=== PATIENT | female | born 1995 | race Caucasian/White ===

== ENCOUNTER 2016-05-06 17:09 | Emergency (ER) | payer OTHER ==
[2016-05-06 17:44] VITALS: BP 140/87
--- NOTE | 2016-05-06 19:15 | UC ---
Complaint Female HPI - HPI Summary HPI Summary: pt states then when she woke up on tuesday, she had urgency. pt states it west when she voids and he urine smells bad. pt tried to treat herself at home with azo and cranberry juice. [ End ] - History Of Current Complaint Chief Complaint: UCGU Stated Complaint: BURNING URINATION Time Seen by Provider: 05/06/16 17:56 Hx Obtained From: Patient Hx Last Menstrual Period: 04/23/16 ?: No Onset/Duration: Lasting Days - 4, Still Present Timing: Constant Severity Initially: Mild Severity Currently: Mild Pain Intensity: 4 Pain Scale Used: 0-10 Numeric Character: Burning Aggravating Factor(s): Urination Alleviating Factor(s): Nothing Associated Signs And Symptoms: Negative: Fever, Back Pain, Vaginal Bleeding/ Discharge, Vaginal Discharge, Nausea, Vomiting(# Of Episodes =), Genital Swelling, Genital Blisters - Allergies/Home Medications Allergies/Adverse Reactions: Allergies Allergy/AdvReac Type Severity Reaction Status Date / Time Acetaminophen [From Vicodin] Allergy Severe Vomiting Verified 12/17/15 13:04 Hydrocodone [From Vicodin] Allergy Severe Vomiting Verified 12/17/15 13:04 Bismuth Subsalicylate Allergy See Comment Verified 12/17/15 13:04 [From Pepto-Bismol] Home Medications: Home Medications Cranberry-Vitamin C-Probiotic [Azo Cranberry 250-30 mg] 450 mg PO 05/06/16 [ History] PMH/Surg Hx/FS Hx/Imm Hx Previously Healthy: No Respiratory History Of: Reports: Asthma - As child - Surgical History Surgical History: Yes Surgery Procedure, Year, and Place: [place] teeth - Family History Known Family History: Positive: Hypertension - Social History Occupation: Employed Part-time, Student Lives: With Family Alcohol Use: Occasionally Substance Use Type: None Smoking Status (MU): Never Smoked Tobacco - Immunization History Most Recent Influenza Vaccination: Unknown Review of Systems Constitutional: Negative Skin: Negative Eyes: Negative ENT: Negative Respiratory: Negative Cardiovascular: Negative Gastrointestinal: Negative Genitourinary: Dysuria, Frequency, Urgency Motor: Negative Neurovascular: Negative Musculoskeletal: Negative Neurological: Negative Psychological: Negative All Other Systems Reviewed And Are Negative: Yes Physical Exam Triage Information Reviewed: Yes Appearance: Well-Appearing, No Pain Distress, Well-Nourished Vital Signs: Initial Vital Signs Temp 98.6 F 05/06/16 17:40 Pulse 82 05/06/16 17:40 Resp 18 05/06/16 17:40 BP 140/87 05/06/16 17:40 Pulse Ox 99 05/06/16 17:40 Vital Signs Reviewed: Yes Eye Exam: Normal Eyes: Positive: Conjunctiva Clear ENT Exam: Normal ENT: Positive: Normal ENT inspection, Hearing grossly normal, Pharynx normal, TMs normal. Negative: Nasal congestion, Nasal drainage, Tonsillar swelling, Tonsillar exudate, Trismus, Muffled/hoarse voice Dental Exam: Normal Neck exam: Normal Neck: Positive: Supple, Nontender, No Lymphadenopathy Respiratory Exam: Normal Respiratory: Positive: Chest non-tender, Lungs clear, Normal breath sounds, No respiratory distress, No accessory muscle use Cardiovascular Exam: Normal Cardiovascular: Positive: RRR, No Murmur, Pulses Normal, Brisk Capillary Refill Abdominal Exam: Normal Abdomen Description: Positive: No Organomegaly, Soft, Other: - Suprapubic Discomfort. Negative: CVA Tenderness (R), CVA Tenderness (L) Bowel Sounds: Positive: Present Musculoskeletal Exam: Normal Musculoskeletal: Positive: Strength Intact, ROM Intact, No Edema Neurological Exam: Normal Neurological: Positive: Alert, Muscle Tone Normal Psychological Exam: Normal Skin Exam: Normal Skin: Positive: rashes Complaint Female Dx - Course Course Of Treatment: Increase fluids, BActrim, Azo, follow with pcp re-check prn , culture urine - Differential Dx/Diagnosis Differential Diagnosis/HQI/PQRI: Pelvic Inflammatory Disease, Renal Colic, Urinary Tract Infection Provider Diagnoses: UTI Discharge - Discharge Plan Condition: Stable Disposition: HOME Prescriptions: Phenazopyridine TAB* [Pyridium TAB*] 100 mg PO TID PRN #9 tab PRN Reason: urinary burning Sulfamethox/Trimethoprim DS* [Bactrim DS 800/160 TAB*] 1 tab PO BID #14 tab Patient Education Materials: Phenazopyridine (By mouth), Urinary Tract Infection in Women (ED) Referrals: Dalila Chowdhury NP [Primary Care Provider] - If Needed
== END 2016-05-06 19:29 | disposition home or self-care (01) ==
LOC: UCEAST 17:09
DX: N39.0 Urinary tract infection, site not specified (principal); Z32.02 Encounter for pregnancy test, result negative; Z88.6 Allergy status to analgesic agent; Z88.5 Allergy status to narcotic agent
CPT/HCPCS: 81002; 81025; 87077; 87086; 87186; 99212; G0463

== ENCOUNTER 2016-12-08 16:58 | Emergency (ER) | payer OTHER ==
[2016-12-08 17:17] VITALS: BP 125/73
--- NOTE | 2016-12-08 17:36 | UC ---
Complaint Female HPI - HPI Summary HPI Summary: Patient presents with a past medical history of UTI's. She presents today with complaints of urinary urgency, frequency, and dysuria x 3 days. she states she took Azo, and cranberry extract with a 2 day temporary relief of her symptoms but today the symptoms returned. She denies fever, chills, nausea, or vomiting, flank pain, or abdominal pain. Denies abnormal vaginal discharge or bleedings. She states she feels like these symptoms are consistent with her previous UTI' s. - History Of Current Complaint Chief Complaint: UCGU Stated Complaint: UTI Time Seen by Provider: 12/08/16 17:21 Hx Obtained From: Patient Hx Last Menstrual Period: 12/06 ?: No Onset/Duration: Gradual Onset, Lasting Days Timing: Intermittent, Lasting Days Severity Initially: Mild Severity Currently: Moderate Character: Cramping Aggravating Factor(s): Urination Associated Signs And Symptoms: Positive: Negative - Risk Factors Ectopic Risk Factor: Negative Ovarian Torsion Risk Factor: Negative - Allergies/Home Medications Allergies/Adverse Reactions: Allergies Allergy/AdvReac Type Severity Reaction Status Date / Time Acetaminophen [From Vicodin] Allergy Severe Vomiting Verified 12/08/16 17:13 Hydrocodone [From Vicodin] Allergy Severe Vomiting Verified 12/08/16 17:13 Bismuth Subsalicylate Allergy See Comment Verified 12/08/16 17:13 [From Pepto-Bismol] PMH/Surg Hx/FS Hx/Imm Hx Previously Healthy: Yes - Surgical History Surgical History: Yes Surgery Procedure, Year, and Place: [place] teeth - Family History Known Family History: Positive: Hypertension - Social History Occupation: Employed Part-time Lives: Alone Alcohol Use: Occasionally Substance Use Type: None Smoking Status (MU): Never Smoked Tobacco - Immunization History Most Recent Influenza Vaccination: Unknown Review of Systems Genitourinary: Dysuria, Frequency, Urgency All Other Systems Reviewed And Are Negative: Yes Physical Exam Triage Information Reviewed: Yes Appearance: Well-Appearing Vital Signs: Initial Vital Signs Temp 98 F 12/08/16 17:14 Pulse 86 12/08/16 17:14 Resp 17 12/08/16 17:14 BP 125/73 12/08/16 17:14 Pulse Ox 99 12/08/16 17:14 Eye Exam: Normal ENT Exam: Normal Neck exam: Normal Respiratory Exam: Normal Cardiovascular Exam: Normal Abdomen Description: Positive: No Organomegaly, Soft, Other: - mild suprapubic tenderness to palpation. Skin Exam: Normal Complaint Female Dx - Course Course Of Treatment: Patient was treated for UTI, urine was positive. She had a nontoxic appearance and was disharged in stable condition. - Differential Dx/Diagnosis Differential Diagnosis/HQI/PQRI: Urinary Tract Infection Provider Diagnoses: uti Discharge - Discharge Plan Condition: Stable Disposition: HOME Prescriptions: Fluconazole 100 MG TAB* [Diflucan 100 MG TAB*] 100 mg PO DAILY #1 tab Nitrofurantoin Monohyd Macro [Macrobid] 100 mg PO BID #10 cap Patient Education Materials: Urinary Tract Infection in Women (ED) Forms: *Work Release Referrals: Dalila Chowdhury NP [Primary Care Provider] -
--- NOTE | 2016-12-10 19:21 | UC ---
Progress - Progress Note Progress Note: CALL PATIENT. CX (-). STOP ABX. IF WORSE ER.
== END 2016-12-08 17:30 | disposition home or self-care (01) ==
LOC: UCEAST 16:58
DX: N39.0 Urinary tract infection, site not specified (principal); Z87.440 Personal history of urinary (tract) infections; Z88.6 Allergy status to analgesic agent; Z88.5 Allergy status to narcotic agent
CPT/HCPCS: 81003; 87086; 99212; G0463

== ENCOUNTER 2017-03-15 15:19 | Emergency (ER) | payer OTHER ==
[2017-03-15 15:37] VITALS: BP 125/75
--- NOTE | 2017-03-15 16:47 | UC ---
Throat Pain/Nasal Devonte HPI - HPI Summary HPI Summary: Pt presents with flu like symptoms. She tells me that about 4 days ago she developed generalized body aches, mild fatigue, and sinus congestion. Since that time her symptoms have worsened. She had an instance of b/l conjunctivitis 2 days ago, which cleared by the next day. She has been taking an OTC cold and flu medicine with mild relief. She denies fever, chills, cough, SOB, chest pain , abdominal pain, N/V/D/C - History of Current Complaint Chief Complaint: UCRespiratory Stated Complaint: URI Time Seen by Provider: 03/15/17 16:47 Hx Obtained From: Patient Hx Last Menstrual Period: now Onset/Duration: Gradual Onset Severity: Moderate - Allergies/Home Medications Allergies/Adverse Reactions: Allergies Allergy/AdvReac Type Severity Reaction Status Date / Time Acetaminophen [From Vicodin] Allergy Severe Vomiting Verified 03/15/17 15:37 Hydrocodone [From Vicodin] Allergy Severe Vomiting Verified 03/15/17 15:37 Bismuth Subsalicylate Allergy See Comment Verified 03/15/17 15:37 [From Pepto-Bismol] Home Medications: Home Medications NK [No Home Medications Reported] 03/15/17 [History Confirmed 03/15/17] PMH/Surg Hx/FS Hx/Imm Hx Previously Healthy: Yes - Surgical History Surgical History: Yes Surgery Procedure, Year, and Place: [place] teeth - Family History Known Family History: Positive: Hypertension - Social History Occupation: Employed Full-time Lives: Alone Alcohol Use: Occasionally Substance Use Type: None Smoking Status (MU): Never Smoked Tobacco - Immunization History Most Recent Influenza Vaccination: Unknown Review of Systems Constitutional: Fatigue, Other - Body aches Skin: Negative Eyes: Negative ENT: Nasal Discharge, Sinus Congestion, Sinus Pain/Tenderness Respiratory: Negative Cardiovascular: Negative Gastrointestinal: Negative Neurovascular: Negative Neurological: Negative Psychological: Negative All Other Systems Reviewed And Are Negative: Yes Physical Exam Triage Information Reviewed: Yes Appearance: Well-Appearing, Well-Nourished Vital Signs: Initial Vital Signs Temp 98.8 F 03/15/17 15:33 Pulse 79 03/15/17 15:33 Resp 12 03/15/17 15:33 BP 125/75 03/15/17 15:33 Pulse Ox 95 03/15/17 15:33 Vital Signs Reviewed: Yes Eyes: Positive: Conjunctiva Clear. Negative: Conjunctiva Inflamed, Discharge ENT: Positive: Hearing grossly normal, Pharynx normal, Nasal congestion, TMs normal, Sinus tenderness, Uvula midline. Negative: Pharyngeal erythema, Nasal drainage, TM bulging, TM dull, TM red, Tonsillar swelling, Tonsillar exudate, Muffled voice, Hoarse voice Neck: Positive: Supple, Nontender, No Lymphadenopathy, Other: - FROM Respiratory: Positive: Chest non-tender, Lungs clear, Normal breath sounds, No respiratory distress, No accessory muscle use Cardiovascular: Positive: RRR, No Murmur, Pulses Normal Abdomen Description: Positive: Nontender, No Organomegaly, Soft. Negative: CVA Tenderness (R), CVA Tenderness (L), Distended, Guarding, Hepatomegaly, Splenomegaly Bowel Sounds: Positive: Present Musculoskeletal: Positive: Strength Intact - Throughout UEs and LEs, ROM Intact - Throughout UEs and LEs, No Edema Neurological: Positive: Alert. Negative: Fatigued Psychological: Positive: Age Appropriate Behavior Skin: Negative: rashes Throat Pain/Nasal Course/Dx - Course Course Of Treatment: POC Flu was negative. Suspect viral illness, possibly viral sinusitis. Advised conservative measures, OTC mucinex, and off work tomorrow for rest. - Differential Dx/Diagnosis Differential Diagnosis/HQI/PQRI: Influenza, Mononucleosis, Sinusitis, Tonsillitis, URI Provider Diagnoses: Fatigue. Body aches. Sinus congestion Discharge - Discharge Plan Condition: Stable Disposition: HOME Patient Education Materials: Viral Syndrome (ED) Forms: *Work Release Referrals: Dalila Chowdhury NP [Primary Care Provider] - Additional Instructions: If you develop a fever, SOB, chest pain, new or worsening symptoms - please call your PCP or go to the ED. 1) Take plain Mucinex OTC twice a day 2) Rest and drink plenty of water!
== END 2017-03-15 17:53 | disposition home or self-care (01) ==
LOC: UCEAST 15:19
DX: R53.83 Other fatigue (principal); J34.89 Other specified disorders of nose and nasal sinuses; R52 Pain, unspecified
CPT/HCPCS: 87502; 99211; G0463

== ENCOUNTER 2018-02-21 14:18 | Emergency (ER) | payer OTHER ==
[2018-02-21 14:46] VITALS: BP 135/78
--- NOTE | 2018-02-21 15:27 | UC ---
Dizzy HPI HPI Summary: Pt presents with c/o gradual onset of dizziness. Pt reports that she has not been sleeping well, works two jobs and states "she doesn't take care of herself ". - History Of Current Complaint Chief Complaint: UCDizziness Stated Complaint: DIZZINESS Time Seen by Provider: 02/21/18 15:09 Hx Obtained From: Patient Hx Last Menstrual Period: iud ?: No Onset/Duration: Gradual Onset, Lasting Days, Still Present Timing: Days Severity Initially: Mild Severity Currently: Mild Pain Intensity: 0 Character: Dizzy Aggravating Factor(s): Position Change Alleviating Factor(s): Nothing Associated Signs And Symptoms: Positive: Negative - Risk Factors Cardiac Risk Factors: Negative CVA Risk Factor: Negative - Allergies/Home Medications Allergies/Adverse Reactions: Allergies Allergy/AdvReac Type Severity Reaction Status Date / Time bismuth subsalicylate Allergy See Comment Verified 02/21/18 14:48 [From Pepto-Bismol] hydrocodone Allergy See Comment Verified 02/21/18 14:48 Home Medications: Home Medications Venlafaxine TAB (NF) [Effexor TAB (NF)] 125 mg PO 02/21/18 [History] PMH/Surg Hx/FS Hx/Imm Hx Previously Healthy: Yes - Surgical History Surgical History: Yes Surgery Procedure, Year, and Place: [place] teeth - Family History Known Family History: Positive: Hypertension - Social History Occupation: Employed Full-time Lives: With Family Alcohol Use: Occasionally Substance Use Type: None Smoking Status (MU): Never Smoked Tobacco - Immunization History Most Recent Influenza Vaccination: Unknown Review of Systems All Other Systems Reviewed And Are Negative: Yes Constitutional: Positive: Negative Skin: Positive: Negative Eyes: Positive: Negative ENT: Positive: Negative Respiratory: Positive: Negative Cardiovascular: Positive: Negative Gastrointestinal: Positive: Negative Genitourinary: Positive: Negative Motor: Positive: Negative Neurovascular: Positive: Negative Musculoskeletal: Positive: Negative Neurological: Positive: Negative Psychological: Positive: Negative Is Patient Immunocompromised?: No Physical Exam Triage Information Reviewed: Yes Appearance: Other: - tired Vital Signs: Initial Vital Signs Temp 97.8 F 02/21/18 14:42 Pulse 98 02/21/18 14:42 Resp 18 02/21/18 14:42 BP 135/78 02/21/18 14:42 Pulse Ox 98 02/21/18 14:42 Vital Signs Reviewed: Yes Eye Exam: Normal ENT: Positive: TM bulging - bilateral Dental Exam: Normal Neck exam: Normal Respiratory Exam: Normal Cardiovascular Exam: Normal Musculoskeletal Exam: Normal Neurological Exam: Normal Psychological Exam: Normal Skin Exam: Normal Dizzy Course/Dx - Differential Dx/Diagnosis Differential Diagnosis/HQI/PQRI: Other Provider Diagnosis: Dizziness, Fatigue Discharge - Sign-Out/Discharge Documenting (check all that apply): Patient Departure All imaging exams completed and their final reports reviewed: No Studies - Discharge Plan Condition: Stable Disposition: HOME Prescriptions: Meclizine TAB* [Antivert 12.5 TAB*] 12.5 mg PO Q8H PRN #9 tab PRN Reason: Dizziness Patient Education Materials: Dizziness (ED) Forms: *Work Release Referrals: Dalila Chowdhury NP [Primary Care Provider] - As Soon As Possible - Billing Disposition and Condition Condition: STABLE Disposition: Home
== END 2018-02-21 15:47 | disposition home or self-care (01) ==
LOC: UCEAST 14:18
DX: R42 Dizziness and giddiness (principal); R53.83 Other fatigue; Z88.8 Allergy status to other drugs, medicaments and biological substances; Z88.5 Allergy status to narcotic agent
CPT/HCPCS: 99212; G0463